=== PATIENT | female | born 2000 | race Caucasian/White ===

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

== ENCOUNTER → 2020-06-13 19:15 | Observation (INO) ==
[~2020-06-13 19:15] MED LIST: Betamethasone Acet/SodPhos 30 MG/5 ML VIAL IM SCH
== END | disposition home or self-care (01) ==
LOC: 1NENULAB
PROVIDERS: ADMIT Obstetrics & Gynecology; ATTEND Obstetrics & Gynecology

== ENCOUNTER 2020-07-17 07:57 | Inpatient (IN) ==
[2020-07-17] MEDS ORDERED: miSOPROStoL 25 MCG TABLET VG PRN (08:39)
[2020-07-17] MEDS ORDERED: Famotidine 20 MG/2 ML VIAL IVP PRN (08:39)
[2020-07-17] MEDS ORDERED: Naloxone 0.4 MG/ML INJ IVP PRN (08:39)
[2020-07-17] MEDS ORDERED: Metoclopramide 10 MG/2 ML VIAL IVP PRN (08:39)
[2020-07-17 09:10] LABS: Basophils % 0.3 %; Eosinophils # 0.1 K/mcL (0.0-0.6); Eosinophils % 0.7 %; Hematocrit 38.6 % (35.3-44.9); Immature Granulocytes % 0.9 % (0-4); Lymphocytes # 1.8 K/mcL (0.6-4.6); Lymphocytes % 15.7 %; Mean Corpuscular HGB Conc 33.7 g/dL (31.6-35.5); Mean Corpuscular Volume 91.9 fL (83.0-100.0); Mean Platelet Volume 10.2 fL (9.4-12.4); Monocytes # 0.5 K/mcL (0.0-1.3); Monocytes % 4.5 %; Neutrophils # 9.1 K/mcL (1.6-8.9); Platelet Count 264 K/mcL (140-400); Red Cell Distribution Width 12.9 % (11.5-14.5); Segmented Neutrophils % 77.9 %; White Blood Count 11.7 K/mcL (4.3-11.1)
[2020-07-17 09:45] LABS: Amphetamine Screen,Urine Negative ng/mL (Cutoff=1000); Barbiturate Screen,Urine Negative ng/mL (Cutoff=200); Benzodiazepines Screen,Urine Negative ng/mL (Cutoff=200); Cannabinoid Screen,Urine Positive ng/mL (Cutoff = 50); Cocaine Screen,Urine Negative ng/mL (Cutoff= 300); Opiate Screen,Urine Negative ng/mL (Cutoff=300); Phencyclidine Screen,Urine Negative ng/mL (Cutoff=25)
[2020-07-17] MEDS ORDERED: Ondansetron 4 MG/2 ML VIAL ONE (15:06)
[2020-07-17] MEDS: Ondansetron 4 MG/2 ML VIAL IVP PRN ×2 (15:11→20:43)
[2020-07-17] MEDS ORDERED: miSOPROStoL 25 MCG TABLET PO SCH (17:00)
[2020-07-17] MEDS ORDERED: miSOPROStoL 25 MCG TABLET VG ONE (18:16)
[2020-07-17] MEDS: *HR* FentaNYL (PF) 100 MCG/2 ML VIAL IVP PRN ×2 (18:38→21:13)
[2020-07-17] MEDS ORDERED: EPHEDrine 50 MG/ML VIAL IVP PRN (19:14)
[2020-07-17] MEDS ORDERED: Ropivacaine/PF 0.2% 20 ML VIAL EP ONE (19:14)
[2020-07-17] MEDS ORDERED: *HR* FentaNYL (PF) 100 MCG/2 ML VIAL EP ONE (19:14)
[2020-07-17] MEDS ORDERED: Epidural Premix (fent/bupiv) 110 ML EP SCH (19:15)
[2020-07-17] MEDS: Oxytocin 20 units/ LR 1000 mL 20 UNIT/1,000 ML BAG IVC SCH (23:00)
[2020-07-17] MEDS: Ringers Solution, Lactated 1,000 ML IVC SCH (23:00)
[2020-07-17] MEDS ORDERED: *HR* FentaNYL (PF) 100 MCG/2 ML VIAL ONE (23:42)
[2020-07-17] MEDS ORDERED: Ropivacaine/PF 0.2% 20 ML VIAL ONE (23:43)
[2020-07-18] MEDS: Ringers Solution, Lactated 1,000 ML IVC SCH (09:45)
[2020-07-18] MEDS: Oxytocin 20 units/ LR 1000 mL 20 UNIT/1,000 ML BAG IVC SCH (13:30)
[2020-07-18] MEDS ORDERED: Acetaminophen 325 MG TABLET PO PRN (14:18)
[2020-07-18] MEDS ORDERED: Measles/Mumps/Rubella Vacc 0.5 ML VIAL SQ PRN (14:18)
[2020-07-18] MEDS ORDERED: Lanolin 7 G OINT...G. TP PRN (14:18)
[2020-07-18] MEDS ORDERED: Benzocaine/Menthol 56 GM AEROSOL SPRAY TP PRN (14:18)
[2020-07-18] MEDS ORDERED: Oxytocin 20 units/ LR 1000 mL 20 UNIT/1,000 ML BAG IVC SCH (14:18)
[2020-07-18] MEDS: Ibuprofen 600 MG TABLET PO PRN (16:58)
[2020-07-19 07:39] VITALS: BP 118/83
[2020-07-19] MEDS: Ibuprofen 600 MG TABLET PO PRN (07:57)
[2020-07-19] MEDS ORDERED: Prenatal Vit/FA 1 EACH TABLET PO SCH (09:00)
== END 2020-07-19 11:15 | disposition home or self-care (01) | DRG 560 ==
LOC: 1NENULAB 07:57 → 1NENUOBS 07-18 14:19
PROVIDERS: ADMIT Student in an Organized Health Care Education/Training Program; ATTEND Student in an Organized Health Care Education/Training Program